=== PATIENT | female | born 1995 | race Caucasian/White ===

== ENCOUNTER 2020-08-05 10:21 | Outpatient (CLI) | payer OTHER | END 2020-08-05 23:59 | disposition home or self-care (01) | LOC: LAB 10:21 | PROVIDERS: ATTEND Obstetrics & Gynecology | DX: Z34.81 Encounter for supervision of other normal pregnancy, first trimester (principal) | CPT/HCPCS: 36415; 84702 ==

== ENCOUNTER 2020-08-07 09:45 | Outpatient (CLI) | payer OTHER | END 2020-08-07 23:59 | disposition home or self-care (01) | LOC: LAB 09:45 | PROVIDERS: ATTEND Obstetrics & Gynecology | DX: Z34.81 Encounter for supervision of other normal pregnancy, first trimester (principal) | CPT/HCPCS: 36415; 84702 ==

== ENCOUNTER 2020-08-10 11:20 | Emergency (ER) | payer OTHER ==
[~2020-08-10] VITALS: Ht 170.2 cm; Wt 51.9 kg
[2020-08-10] MEDS ORDERED: ACETAMINOPHEN 325 MG TABLET ONE (11:41)
--- NOTE | 2020-08-10 11:56 | NUR ---
PT OFF THE FLOOR TO ULTRASOUND
[2020-08-10 11:59] LABS: BASOPHILS % (AUTO) 0 % (0-1); EOSINOPHILS % (AUTO) 1 % (1-7); LYMPHOCYTES % (AUTO) 34 % (22-44); MEAN CORPUSCULAR HEMOGLOBIN 31.9 pg (27.0-34.8); MEAN CORPUSCULAR HGB CONC 33.6 g/dL (32.4-35.8); MEAN PLATELET VOLUME 8.9 fL (7.4-10.4); MONOCYTES % (AUTO) 5 % (2-9); NEUTROPHILS % (AUTO) 60 % (42-75); PLATELET COUNT 252 x10^3/uL (130-400); RED BLOOD COUNT 4.26 x10^6/uL (3.82-5.3)
[2020-08-10] MEDS ORDERED: ACETAMINOPHEN 325 MG TABLET PO ONE (12:00)
[2020-08-10 12:06] LABS: ALBUMIN 4.3 g/dL (3.4-5.0); ANION GAP 9 mmol/L (5-15); CALCIUM 9.1 mg/dL (8.5-10.1); CHLORIDE 108 mmol/L (98-107); CREATININE 0.64 mg/dL (0.55-1.02); MD NO
[2020-08-10 12:14] LABS: ALANINE AMINOTRANSFERASE 25 U/L (12-78); ALKALINE PHOSPHATASE 49 U/L (45-117); BILIRUBIN,TOTAL 0.5 mg/dL (0.2-1.0)
[2020-08-10 12:20] LABS: MICROSCOPIC INDICATED
--- NOTE | 2020-08-10 13:33 | NUR ---
ASSUMED CARE FROM [facility]. PT IS COMFORTABLE, NO REQUEST. JENNA.
[2020-08-10] MEDS ORDERED: MISOPROSTOL 200 MCG TABLET PO ONE (14:00)
--- NOTE | 2020-08-10 14:05 | NUR ---
PER ALYCE GUTIERREZ OK FOR PT TO EAT.
[2020-08-10 14:20] VITALS: BP 118/70
--- NOTE | 2020-08-10 14:29 | NUR ---
Patient given discharge instructions and they have confirmed that they understand the instructions.
== END 2020-08-10 14:45 | disposition home or self-care (01) ==
LOC: ED 14:02
DX: O03.4 Incomplete spontaneous abortion without complication (principal); Z3A.01 Less than 8 weeks gestation of pregnancy
CPT/HCPCS: 36415; 76801; 80053; 81001; 84702; 85025; 86901; 87086; 99284

== ENCOUNTER 2020-08-10 18:12 | Emergency (ER) | payer OTHER ==
[~2020-08-10] VITALS: Ht 170.2 cm; Wt 51.3 kg
--- NOTE | 2020-08-10 18:58 | NUR ---
STATES SPONTANIOUS , SEEN HERE THIS AM, WAS APPROX 7 WEEKS . STATES SEVERE ABD PAIN AND CRAMPING CURRENTLY. vss
[2020-08-10] MEDS ORDERED: SODIUM CHLORIDE 0.9% 1,000ML IVBOLUS ONE (19:00)
[2020-08-10] MEDS ORDERED: ONDANSETRON 2MG/ML, 2ML IVPush ONE ×2 (19:00→22:00)
[2020-08-10] MEDS ORDERED: SODIUM CHLORIDE FLUSH 10ML SYR IVF ONE (19:00)
[2020-08-10] MEDS ORDERED: MORPHINE SULFATE 4 MG/ML, 1ML ONE ×3 (19:03→21:01)
[2020-08-10] MEDS ORDERED: ONDANSETRON 2MG/ML, 2ML ONE ×2 (19:03→21:59)
[2020-08-10] MEDS: MORPHINE SULFATE 4 MG/ML, 1ML IVPush PRN ×2 (19:14→20:20)
[2020-08-10 19:32] LABS: ALANINE AMINOTRANSFERASE 24 U/L (12-78); ANION GAP 8 mmol/L (5-15); CALCIUM 8.8 mg/dL (8.5-10.1); CHLORIDE 109 mmol/L (98-107); CREATININE 0.63 mg/dL (0.55-1.02)
[2020-08-10 19:34] LABS: BASOPHILS % (AUTO) 0 % (0-1); EOSINOPHILS % (AUTO) 0 % (1-7); LYMPHOCYTES % (AUTO) 16 % (22-44); MEAN CORPUSCULAR HEMOGLOBIN 31.9 pg (27.0-34.8); MEAN CORPUSCULAR HGB CONC 33.8 g/dL (32.4-35.8); MEAN PLATELET VOLUME 9.1 fL (7.4-10.4); MONOCYTES % (AUTO) 3 % (2-9); NEUTROPHILS % (AUTO) 81 % (42-75); PLATELET COUNT 234 x10^3/uL (130-400); RED BLOOD COUNT 4.04 x10^6/uL (3.82-5.3); RED CELL DISTRIBUTION WIDTH 12.1 % (9.6-15.2)
[2020-08-10 19:35] LABS: ALKALINE PHOSPHATASE 44 U/L (45-117); BILIRUBIN,TOTAL 0.5 mg/dL (0.2-1.0); TOTAL PROTEIN 7.4 g/dL (6.4-8.2)
[2020-08-10 19:38] LABS: MD NO
--- NOTE | 2020-08-10 19:44 | NUR ---
WITH REASESSMENT FOR FURTHER VAGINAL BLEEDING; PAIN/NAUSEA COMPLETELY RESOLVED
--- NOTE | 2020-08-10 20:23 | NUR ---
UNABLE TO OBTAIN UA WITH STANDING PAIN RETURNED AT 10/10-REMEDICATED
[2020-08-10] MEDS ORDERED: MORPHINE SULFATE 4 MG/ML, 1ML IVPush PRN (21:00)
--- NOTE | 2020-08-10 21:37 | NUR ---
PAIN IMPROVED TO 0/10 POC REVIEWED WITH PROVIDER- WOULD NOW LIKE STRAIGHT CATH UA- FEMALE COLLEGUE TO BEDSIDE TO OBTAIN
--- NOTE | 2020-08-10 21:48 | NUR ---
GREG WALDRON OBTAINED BY YING
[2020-08-10 22:03] LABS: MICROSCOPIC NOT IND
[2020-08-10 22:32] VITALS: BP 100/65
== END 2020-08-10 22:34 | disposition home or self-care (01) ==
LOC: ED 18:48
DX: O36.4XX0 Maternal care for intrauterine death, not applicable or unspecified (principal); R10.2 Pelvic and perineal pain; Z3A.01 Less than 8 weeks gestation of pregnancy
CPT/HCPCS: 36415; 80053; 81003; 85025; 96361; 96374; 96375; 96376; 99284; J2270; J2405; J7030